=== PATIENT | male | born 1960 | race African-American/Black ===

== ENCOUNTER 2018-07-15 09:56 | Inpatient (IN) | payer OTHER ==
[2018-07-15 10:17] VITALS: BMI 30.5
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
[2018-07-15] MEDS ORDERED: P-EPHED 60MG/TRIPROLIDI 2.5MG TABLET PO PRN (11:06)
[2018-07-15] MEDS ORDERED: MAGNESIUM HYDROX 2400MG/30ML ORAL SUSPENSION 30 ML CUP PO PRN (11:06)
[2018-07-15] MEDS ORDERED: diazePAM 5 MG TABLET PO PRN (11:06)
[2018-07-15] MEDS ORDERED: IBUPROFEN 400 MG TABLET (FP) PO PRN (11:06)
[2018-07-15] MEDS ORDERED: MAG HYDROX/AL HYDROX/SIMETH 30 ML UNIT-DOSE CUP PO PRN (11:06)
[2018-07-15] MEDS ORDERED: MAGNESIUM CITRATE 300 ML BOTTLE PO PRN (11:06)
[2018-07-15] MEDS ORDERED: MENTHOL/PHENOL 1 EACH UD MM PRN (11:06)
[2018-07-15] MEDS ORDERED: NICOTINE POLACRILEX 2 MG GUM BC PRN (11:06)
[2018-07-15] MEDS ORDERED: ACETAMINOPHEN 325 MG TABLET (FP) PO PRN (11:06)
[2018-07-15] MEDS ORDERED: guaiFENesin/D-METHORPHAN HB 10 ML UNIT-DOSE CUPS PO PRN (11:06)
[2018-07-15] MEDS ORDERED: METHADONE HCL 10 MG TABLET PO ONE (14:00)
[2018-07-15] MEDS ORDERED: METHADONE HCL 10 MG TABLET (FOR DETOX USE ONLY) PO ONE ×2 (14:35→23:00)
[2018-07-15] MEDS ORDERED: chlordiazePOXIDE HCL 25 MG CAPSULE PO PRN (16:59)
[2018-07-15] MEDS ORDERED: MELATONIN 5 MG TABLETS PO PRN (22:00)
[2018-07-15] MEDS: ATORVASTATIN CA 10 MG TABLET (FP) PO SCH (22:21)
[2018-07-15] MEDS: THIAMINE HCL 100 MG TABLET (FP) PO SCH (22:21)
[2018-07-15] MEDS: chlordiazePOXIDE HCL 25 MG CAPSULE PO SCH (22:21)
[2018-07-16] MEDS: chlordiazePOXIDE HCL 25 MG CAPSULE PO SCH ×4 (05:12→22:13)
[2018-07-16] MEDS: ASPIRIN 81 MG CHEWABLE TABLETS PO SCH (09:49)
[2018-07-16] MEDS: PRENATAL VITAMINS W/ FOLIC ACID TABLET (FP) PO SCH (09:49)
[2018-07-16] MEDS ORDERED: METHADONE HCL 10 MG TABLET (FOR DETOX USE ONLY) PO ONE (10:00)
[2018-07-16 10:02] LABS: HEMATOCRIT 42.1 % (35.4-49); HEMOGLOBIN 13.7 GM/dL (11.7-16.9); MCH 28.4 pg (25.7-33.7); MCHC 32.6 g/dl (32.0-35.9); MEAN PLT VOLUME 7.8 fl (7.5-11.1); PLATELET COUNT 508 K/MM3 (134-434); RBC 4.84 M/mm3 (4.00-5.60); RDW 15.1 % (11.9-15.9); WHITE BLOOD COUNT 8.9 K/mm3 (4.0-10.0)
[2018-07-16 11:17] LABS: ALBUMIN 3.6 g/dl (3.4-5.0); ALK PHOS 86 U/L (45-117); ANION GAP 8 MMOL/L (8-16); BILIRUBIN,TOTAL 0.4 mg/dL (0.2-1); BLOOD UREA NITROGEN 12 mg/dL (7-18); CALCIUM 8.8 mg/dL (8.5-10.1); CHLORIDE 104 mmol/L (98-107); CO2 28 mmol/L (21-32); CREATININE 0.9 mg/dL (0.55-1.3); GLUCOSE,RANDOM 103 mg/dL (74-106); POTASSIUM 4.3 mmol/L (3.5-5.1); SGOT/AST 23 U/L (15-37); SGPT/ALT 27 U/L (13-61); SODIUM 140 mmol/L (136-145); TOT PROT 8.4 g/dl (6.4-8.2)
[2018-07-16] MEDS ORDERED: cloNIDine HCL 0.1 MG TABLET PO PRN (12:19)
[2018-07-16] MEDS ORDERED: hydrOXYzine PAMOATE 50 MG CAPSULE (FP) PO PRN (12:19)
--- NOTE | 2018-07-16 14:36 | PN ---
[facility] CIWA - CIWA Score Nausea/Vomitin-Mild Nausea/No Vomiting Muscle Tremors: 2 Anxiety: 1-Mildly Anxious Agitation: 1-Slight > Activity Paroxysmal Sweats: 1-Minimal Palms Moist Orientation: 1-Uncertain about Date Tacttile Disturbances: 0-None Auditory Disturbances: 0-None Visual Disturbances: 0-None Headache: 0-None Present CIWA-Ar Total Score: 7 S COWS - Scale Resting Pulse: 0= NE 80 or Below Sweatin= Chills/Flushing Restless Observation: 1= Difficult to Sit Still Pupil Size: 0= Normal to Room Light Bone or Joint Aches: 1= Mild Discomfort Runny Nose/ Eye Tearin= Nasal Congestion GI Upset > 30mins: 1= Stomach Cramp Tremor Observation of Outstretched Hands: 1= Tremor [place], Not Seen Yawning Observation: 0= None Anxiety or Irritability: 1=Feels Anxious/Irritable Goose Flesh Skin: 0=Smooth Skin COWS Score: 7 S Progress Note (SOAP) Subjective: Patient here for detox from heroin and alcohol use- says he is still having withdrawal Sx. O: Vital Signs - 24 hr 07/15/18 07/15/18 07/15/18 14:55 17:19 21:12 Temperature 96.7 F L 96.8 F L 97 F L Pulse Rate 80 61 73 Respiratory 18 18 18 Rate Blood Pressure 106/68 124/67 119/72 07/16/18 07/16/18 07/16/18 00:30 03:30 06:04 Temperature 97.6 F Pulse Rate 56 L Respiratory 18 18 18 Rate Blood Pressure 114/58 L 07/16/18 09:39 Temperature 98.2 F Pulse Rate 73 Respiratory 18 Rate Blood Pressure 115/68 Laboratory Tests 07/16/18 07/16/18 07/16/18 05:45 05:45 05:45 WBC 8.9 RBC 4.84 Hgb 13.7 Hct 42.1 MCV 87.0 MCH 28.4 MCHC 32.6 RDW 15.1 Plt Count 508 H D MPV 7.8 Sodium 140 Potassium 4.3 Chloride 104 Carbon Dioxide 28 Anion Gap 8 BUN 12 Creatinine 0.9 Creat Clearance w eGFR > 60 Random Glucose 103 Calcium 8.8 Total Bilirubin 0.4 AST 23 ALT 27 Alkaline Phosphatase 86 Total Protein 8.4 H Albumin 3.6 RPR Titer Nonreactive a/p: Alcohol and opioid use disorder: continue detox protocols- d/w pt to use prn meds for symptom control d/w pt medication assisted treatment programs- pt to d/w counselor
--- NOTE | 2018-07-16 17:48 | CONSULT ---
[facility] Psychiatric Consult - Data Date of interview: 07/16/18 Admission source: [facility] Identifying data: Patient is a 57 year old male, father of two, unemployed, homeless, and will soon be supported by [facility]. This is one of multiple admissions to detox. Patient admitted to for alcohol, cocaine, and opiate dependence. Substance Abuse History: Smoking Cessation. Smoking history: Current every day smoker. Have you smoked in the past 12 months: Yes. Aproximately how many cigarettes per day: 20. Hx Chewing Tobacco Use: No. Initiated information on smoking cessation: No. - Substances Abused. Heroin. Route: Inhalation. Frequency: Daily. Amount used: 7-10 bags. Age of first use: 17. Date of Last Use: 07/13/18. Crack. Route: Smoking. Frequency: Daily. Amount used: $ 100. Age of first use: 24. Date of Last Use: 07/13/18. Alcohol-vodka/rum/ beer. Route: Oral. Frequency: Daily. Amount used: 1 pt./1-2 6 pks. Age of first use: 16. Date of Last Use: 07/13/18 Medical History: Asthma, SKin graft in childhood Psychiatric History: Patient presents as mildy somnolent. Patient unable to provide a clear and cohesive psychiatric history. He reports multiple psychiatric hospitalizations but is unable to recall most recent psychiatric hospitalization. He only recalls past hospitalizations at [facility]. Current outpatient psychiatric services is provided at [facility]. Reports a diagnosis of Bipolar disorder. Patient is currently prescribed zyprexa 10mg + Seroquel 100mg + Remeron 30mg (medications brought to facility). Reports taking medications several days ago. He denies h/o suicide attempt. Physical/Sexual Abuse/Trauma History: denies. Mental Status Exam - Mental Status Exam Alert and Oriented to: Time, Place, Person Cognitive Function: Good Patient Appearance: Well Groomed Mood: Withdrawn, Euthymic Affect: Constricted Patient Behavior: Fatigued, Guarded Speech Pattern: Delayed Voice Loudness: Moderately Soft/Quiet Thought Process: Goal Oriented Thought Disorder: Not Present Hallucinations: Denies Suicidal Ideation: Denies Homicidal Ideation: Denies Insight/Judgement: Poor Sleep: Fair Appetite: Fair Muscle strength/Tone: Normal Gait/Station: Other (Patient ambulates with a cane.) Psychiatric Findings - Problem List ([place] 1, 2,3) (1) Alcohol dependence with uncomplicated withdrawal Current Visit: Yes Status: Acute (2) Mood disorder Current Visit: Yes Status: Chronic (3) Opioid dependence Current Visit: Yes Status: Active (4) Cocaine dependence Current Visit: Yes Status: Acute - Initial Treatment Plan Initial Treatment Plan: Psychoeducation provided. Detox in progress. Will order Zyprexa 10mg HS + Remeron 15mg HS(reduce dosage). Will hold seroquel dose tonight due to risk of oversedation and falls. Benefits and side effects discussed. Verbal consent given.
[2018-07-16] MEDS: OLANZapine 10 MG TABLET PO SCH (22:13)
[2018-07-16] MEDS: ATORVASTATIN CA 10 MG TABLET (FP) PO SCH (22:13)
[2018-07-16] MEDS: THIAMINE HCL 100 MG TABLET (FP) PO SCH (22:13)
[2018-07-16] MEDS: MIRTAZAPINE 15 MG TABLET (FP) PO SCH (22:13)
[2018-07-17] MEDS: chlordiazePOXIDE HCL 25 MG CAPSULE PO SCH ×3 (05:19→17:44)
[2018-07-17] MEDS ORDERED: METHADONE HCL 5 MG TABLET (FOR DETOX USE ONLY) PO ONE (10:00)
[2018-07-17] MEDS: ASPIRIN 81 MG CHEWABLE TABLETS PO SCH (10:19)
[2018-07-17] MEDS: PRENATAL VITAMINS W/ FOLIC ACID TABLET (FP) PO SCH (10:19)
--- NOTE | 2018-07-17 11:51 | PN ---
S CIWA - CIWA Score Nausea/Vomitin-No Nausea/No Vomiting Muscle Tremors: None Anxiety: 4-Mod. Anxious/Guarded Agitation: 2 Paroxysmal Sweats: No Perspiration Orientation: 0-Oriented Tacttile Disturbances: 0-None Auditory Disturbances: 0-None Visual Disturbances: 0-None Headache: 2-Mild CIWA-Ar Total Score: 8 BHS COWS - Scale Resting Pulse: 0= [place] 80 or Below Sweatin= No chills or Flushing Restless Observation: 0= Sits Still Pupil Size: 0= Normal to Room Light Bone or Joint Aches: 0= None Runny Nose/ Eye Tearin= None GI Upset > 30mins: 0= None Tremor Observation of Outstretched Hands: 0= None Yawning Observation: 1= 1-2x During Session Anxiety or Irritability: 2=Irritable/Anxious Goose Flesh Skin: 0=Smooth Skin COWS Score: 3 BHS Progress Note (SOAP) Subjective: PATIENT C/O INTERRUPTED SLEEP, HEADACHE, ANXIETY/IRRITABILITY. Objective: 07/17/18 11:49 Vital Signs Temperature 98.1 F 07/17/18 09:19 Pulse Rate 71 07/17/18 09:19 Respiratory Rate 18 07/17/18 09:19 Blood Pressure 103/68 07/17/18 09:19 O2 Sat by Pulse Oximetry (%) Laboratory Tests 07/16/18 07/16/18 07/16/18 05:45 05:45 05:45 WBC 8.9 RBC 4.84 Hgb 13.7 Hct 42.1 MCV 87.0 MCH 28.4 MCHC 32.6 RDW 15.1 Plt Count 508 H D MPV 7.8 Sodium 140 Potassium 4.3 Chloride 104 Carbon Dioxide 28 Anion Gap 8 BUN 12 Creatinine 0.9 Creat Clearance w eGFR > 60 Random Glucose 103 Calcium 8.8 Total Bilirubin 0.4 AST 23 ALT 27 Alkaline Phosphatase 86 Total Protein 8.4 H Albumin 3.6 RPR Titer Nonreactive PE: ALERT AND ORIENTED X 3 SKIN WARM AND DRY EXT NO EDEMA, FULL ROM EXAM LIMITED PATIENT IRRITABLE AMB AD KLAUS Assessment: 07/17/18 11:50 WITHDRAWAL SX Plan: CONTINUE DETOX ENCOURAGE ORAL FLUIDS CONTINUE TO MONITOR CLINICALLY
[2018-07-17] MEDS: MIRTAZAPINE 15 MG TABLET (FP) PO SCH (22:26)
[2018-07-17] MEDS: THIAMINE HCL 100 MG TABLET (FP) PO SCH (22:26)
[2018-07-17] MEDS: OLANZapine 10 MG TABLET PO SCH (22:26)
[2018-07-17] MEDS: chlordiazePOXIDE 5 MG CAPSULE PO SCH (22:26)
[2018-07-17] MEDS: ATORVASTATIN CA 10 MG TABLET (FP) PO SCH (22:26)
[2018-07-18] MEDS: chlordiazePOXIDE 5 MG CAPSULE PO SCH ×3 (05:17→17:21)
[2018-07-18] MEDS ORDERED: METHADONE HCL 10 MG TABLET (FOR DETOX USE ONLY) PO ONE (10:00)
[2018-07-18] MEDS: ASPIRIN 81 MG CHEWABLE TABLETS PO SCH (10:04)
[2018-07-18] MEDS: PRENATAL VITAMINS W/ FOLIC ACID TABLET (FP) PO SCH (10:04)
--- NOTE | 2018-07-18 10:05 | PN ---
[facility] Progress Note Note: Pt states doing well with alcohol and heroin detox protocols- wants to go home tomorrow- says daughter is visiting from [place] O: Vital Signs - 24 hr 07/17/18 07/17/18 07/17/18 13:22 17:35 21:16 Temperature 97.8 F 97.5 F L 97.4 F L Pulse Rate 67 62 62 Respiratory 18 18 18 Rate Blood Pressure 104/54 L 105/64 118/78 07/18/18 07/18/18 07/18/18 00:30 03:16 06:21 Temperature 97 F L Pulse Rate 60 Respiratory 18 18 18 Rate Blood Pressure 130/64 07/18/18 09:11 Temperature 97.3 F L Pulse Rate 78 Respiratory 18 Rate Blood Pressure 103/58 L Laboratory Tests 07/16/18 07/16/18 07/16/18 05:45 05:45 05:45 WBC 8.9 RBC 4.84 Hgb 13.7 Hct 42.1 MCV 87.0 MCH 28.4 MCHC 32.6 RDW 15.1 Plt Count 508 H D MPV 7.8 Sodium 140 Potassium 4.3 Chloride 104 Carbon Dioxide 28 Anion Gap 8 BUN 12 Creatinine 0.9 Creat Clearance w eGFR > 60 Random Glucose 103 Calcium 8.8 Total Bilirubin 0.4 AST 23 ALT 27 Alkaline Phosphatase 86 Total Protein 8.4 H Albumin 3.6 RPR Titer Nonreactive a/p: continue alcohol and heroin detox protocols discharge order written for tomorrow.
[2018-07-18 21:50] VITALS: TEMP 98.5
[2018-07-18] MEDS: MIRTAZAPINE 15 MG TABLET (FP) PO SCH (22:09)
[2018-07-18] MEDS: OLANZapine 10 MG TABLET PO SCH (22:09)
[2018-07-18] MEDS: THIAMINE HCL 100 MG TABLET (FP) PO SCH (22:09)
[2018-07-18] MEDS: chlordiazePOXIDE HCL 10 MG CAPSULE PO SCH (22:09)
[2018-07-18] MEDS: ATORVASTATIN CA 10 MG TABLET (FP) PO SCH (22:09)
[2018-07-19] MEDS: chlordiazePOXIDE HCL 10 MG CAPSULE PO SCH (05:17)
[2018-07-19] MEDS ORDERED: METHADONE HCL 5 MG TABLET (FOR DETOX USE ONLY) PO ONE (06:00)
[2018-07-19 06:17] VITALS: BP 99/63; PULSE 60
--- NOTE | 2018-07-19 10:00 | PN ---
S Progress Note (SOAP) Subjective: alert,no complaint Objective: 07/19/18 09:59 Vital Signs Temperature 98.5 F 07/19/18 06:17 Pulse Rate 60 07/19/18 06:17 Respiratory Rate 18 07/19/18 06:17 Blood Pressure 99/63 07/19/18 06:17 O2 Sat by Pulse Oximetry (%) Assessment: 07/19/18 09:59 detox completed,no withdrawal symptom Plan: discharge today,follow up with after care program as arrangement
--- NOTE | 2018-07-19 10:04 | DS ---
[facility] Detox Discharge Summary Admission Date: 07/15/18 Discharge Date: 07/19/18 - History Present History: Alcohol Dependence, Cocaine Dependence, Opioid Dependence Additional Comments: follow up with after care program as arrangement Pertinent Past History: asthma nicotine dependence - Physical Exam Results Vital Signs: Vital Signs Temperature 98.5 F 07/19/18 06:17 Pulse Rate 60 07/19/18 06:17 Respiratory Rate 18 07/19/18 06:17 Blood Pressure 99/63 07/19/18 06:17 O2 Sat by Pulse Oximetry (%) Pertinent Admission Physical Exam Findings: withdrawal symptom - Treatment Hospital Course: Detox Protocol Followed, Detoxed Safely, Responded well, Discharged Condition Good Patient has Accepted a Rehab Referral to: declined - Medication Discharge Medications: Ambulatory Orders Amitriptyline HCl [Elavil -] 50 mg PO HS 07/15/18 Aspirin [ASA -] 81 mg PO DAILY 07/15/18 Atorvastatin Ca [Lipitor] 10 mg PO HS 07/15/18 Melatonin 10 mg PO HS 07/15/18 Mirtazapine [Remeron -] 30 mg PO HS 07/15/18 Olanzapine [Zyprexa -] 10 mg PO DAILY 07/15/18 Quetiapine Fumarate [Seroquel] 100 mg PO HS 07/15/18 - Diagnosis (1) Asthma Status: Active (2) Alcohol dependence with uncomplicated withdrawal Status: Acute (3) Opioid dependence with withdrawal Status: Acute (4) Nicotine dependence Status: Chronic Qualifiers: Nicotine product type: cigarettes - AMA Did Patient Leave Against Medical Advice: No
== END 2018-07-19 08:30 | disposition home or self-care (01) | DRG 773 ==
LOC: YASAS 09:56 → Y3N 13:02
PROC: HZ2ZZZZ Detoxification Services for Substance Abuse Treatment (ICD-10-PCS; principal; 2018-07-15)
DX: F11.23 Opioid dependence with withdrawal (principal); F10.230 Alcohol dependence with withdrawal, uncomplicated; F14.20 Cocaine dependence, uncomplicated; F17.210 Nicotine dependence, cigarettes, uncomplicated; F39 Unspecified mood [affective] disorder; J45.909 Unspecified asthma, uncomplicated; E78.00 Pure hypercholesterolemia, unspecified; R00.0 Tachycardia, unspecified; Z88.0 Allergy status to penicillin; Z91.013 Allergy to seafood
CPT/HCPCS: 36415; 71045-TC-FY; 80053; 85027; 86593